=== PATIENT | male | born 1960 | race Caucasian/White ===

== ENCOUNTER 2019-12-22 08:00 | Outpatient (RCR) | payer OTHER ==
[~2019-12-22] VITALS: Ht 172.7 cm; Wt 87.1 kg
[~2019-12-22 08:00] MED LIST: OMEP20CA18 PO; SIMV20TA26 PO
== END 2019-12-22 16:00 | disposition home or self-care (01) ==
LOC: PREOP 08:00
PROVIDERS: ATTEND Surgery
DX: Z01.818 Encounter for other preprocedural examination (principal); Z01.812 Encounter for preprocedural laboratory examination; Z12.11 Encounter for screening for malignant neoplasm of colon; Z80.0 Family history of malignant neoplasm of digestive organs; Z11.59 Encounter for screening for other viral diseases
CPT/HCPCS: 87635